=== PATIENT | female | born 1960 | race Caucasian/White ===

== ENCOUNTER 2018-05-14 22:21 | Emergency (ER) | payer BC ==
[2018-05-14] MEDS ORDERED: Fluorescein Opthalmic Strip ONE (22:30)
[2018-05-14] MEDS ORDERED: Erythromycin Base 0.5% Ophth Oint 3.5 gm Tube ONE (22:39)
== END 2018-05-14 22:52 | disposition home or self-care (01) ==
LOC: BURERS 22:21
DX: S05.02XA Injury of conjunctiva and corneal abrasion without foreign body, left eye, initial encounter (principal); H10.9 Unspecified conjunctivitis; Z79.899 Other long term (current) drug therapy; E78.00 Pure hypercholesterolemia, unspecified; X58.XXXA Exposure to other specified factors, initial encounter
CPT/HCPCS: 99282